=== PATIENT | female | born 1990 | race Caucasian/White ===

== ENCOUNTER 2017-12-31 10:00 | Inpatient (IN) ==
[2017-12-31] MEDS ORDERED: Famotidine 20 MG/2 ML VIAL IVP PRN (10:56)
[2017-12-31] MEDS ORDERED: Metoclopramide 10 MG/2 ML VIAL IVP PRN (10:56)
[2017-12-31] MEDS ORDERED: *HR* Nalbuphine 10 MG/ML AMPUL IVP PRN (10:56)
[2017-12-31] MEDS ORDERED: Ondansetron 4 MG/2 ML VIAL IVP PRN (10:56)
[2017-12-31] MEDS ORDERED: Naloxone 0.4 MG/ML INJ IVP PRN (10:56)
[2017-12-31] MEDS ORDERED: Penicillin G Potassium 5,000,000 UNIT in 0.9 % Sodium Chloride Mini Bag 100 ML IVPB ONE (10:59)
[2017-12-31] MEDS ORDERED: Ringers Solution, Lactated 1,000 ML IVC SCH (11:00)
[2017-12-31 11:18] LABS: Basophils % 0.3 %; Eosinophils # 0.2 K/mcL (0.0-0.6); Eosinophils % 1.8 %; Hematocrit 34.2 % (35.3-44.9); Immature Granulocytes % 0.6 % (0-4); Lymphocytes # 1.3 K/mcL (0.6-4.6); Lymphocytes % 14.6 %; Mean Corpuscular HGB Conc 32.2 g/dL (31.6-35.5); Mean Corpuscular Volume 83.8 fL (83.0-100.0); Mean Platelet Volume 10.7 fL (9.4-12.4); Monocytes # 0.6 K/mcL (0.0-1.3); Monocytes % 6.6 %; Neutrophils # 6.9 K/mcL (1.6-8.9); Platelet Count 272 K/mcL (140-400); Red Blood Count 4.08 M/mcL (3.82-4.97); Red Cell Distribution Width 15.4 % (11.5-14.5); Segmented Neutrophils % 76.1 %
[2017-12-31] MEDS ORDERED: miSOPROStol 25 MCG TABLET PO PRN (11:28)
[2017-12-31 11:29] LABS: Amphetamine Screen,Urine Negative ng/mL (Cutoff=1000); Barbiturate Screen,Urine Negative ng/mL (Cutoff=200); Benzodiazepines Screen,Urine Negative ng/mL (Cutoff=200); Cannabinoid Screen,Urine Negative ng/mL (Cutoff = 50); Cocaine Screen,Urine Negative ng/mL (Cutoff= 300); Opiate Screen,Urine Negative ng/mL (Cutoff=300); Phencyclidine Screen,Urine Negative ng/mL (Cutoff=25)
--- NOTE | 2017-12-31 12:52 | OB/GYN History & Physical ---
Date of Encounter: 12/31/17 Time of Encounter: 13:06 Assessment and Plan (1) 40 weeks gestation of Current visit: Yes Status: Acute Admit to labor and delivery labs Cytotec PO Q4HR Metoclopramide PRN Zofran every 6 hours PRN Nubain and epidural as desired Anticipate (2) Asthma Current visit: Yes Status: Acute Qualifiers: Asthma severity: mild Asthma persistence: intermittent Asthma complication type: unspecified Qualified Code(s): J45.20 - Mild intermittent asthma, uncomplicated (3) Anxiety and depression Current visit: Yes Status: Acute (4) Elective induction of labor planned Current visit: Yes Status: Acute Cytotec PO with EFM in anticipation of vaginal delivery History of Present Illness Chief complaint: Induction of labor HPI: Ms. Bowers is a 27 year old female 001 presenting for induction of labor at 40+1 weeks gestation. Patient has received care from Dr. Quinones. Patient reports no history of complications during this . Patient reports good movement, denies vaginal bleeding, discharge, or fluid leakage. -GBS positive, labs pending Past Med Surg Social Fam HX - Past Medical History Source: patient, nursing notes reviewed Medical history: asthma Psychiatric history: anxiety, depression - Past Surgical History Surgical History: other Additional surgical history: Dental Implants - Social History Smoking Status: Former smoker Smokeless Tobacco Status: No Alcohol use: none Drug use: none - Family History Mother Living Status: Still Living Hx Family Cardiac Disorders: No Hx Family Respiratory Disorders: No Hx Family Cancer: No Hx Family GI Disorders: No Hx Family Genitourinary Disorders: No Hx Family Endocrine Disorder: Yes (throid) Hx Family Musculoskeletal Disorders: No Hx Family Neuromuscular Disorders: No Hx Family Neurologic Disorders: No Hx Family HEENT Disorders: No Hx Family Autoimmune Disorders: No Hx Family Reproductive Disorders: No Hx Family Psychosocial Disorders: Yes (anxiety and depression) Hx Family Medical Disorders: No Obstetrical History - Pregnancies : 2 Para: 1 Term: 1 : 0 Ab's: 0 Livin Medications and Allergies Amoxicillin/Clavulanate [Augmentin] 875 mg PO BIDWM #14 tablet 10/01/17 [Rx] 3 Allergy/AdvReac Type Severity Reaction Status Date / Time No Known Allergies Allergy Verified 10/01/17 19:54 Review of System OB All systems PM: reviewed and no additional remarkable complaints except as stated - Constitutional Constitutional ROS IM: no chills, no fever(s), no headache(s) - Cardiovascular Cardiovascular: edema, leg edema, pedal edema, no chest pain - Respiratory Respiratory: no dyspnea - Gastrointestinal Gastrointestinal: no abdominal pain, no nausea, no vomiting - Genitourinary Genitourinary: no dysuria - Muscloskeletal Musculoskeletal: bilateral: ankle swelling, foot pain (Patient states pins and needles sensation in bilateral heels, worse with ambulation. ) - Neurological Nerological: no disequilibrium, no dizziness, no headache(s), no loss of vision Exam - Constitutional Constitutional: well developed, well nourished, no acute distress, average body habitus - HEENT HEENT: EOMI, PERRL, Normocephaly, Mucus Membranes Moist - Lungs Respiratory exam: CTAB - Cardiovascular Cardiovascular exam: RRR, +S1, +S2 - Abdomen Abdomen: Present: bowel sounds normal, gravid, non tender - Extremities Extremities exam: pedal edema (1+ pitting edema noted in bilateral lower extremities), warm - Cervix Dilation: 4 Effacement: 50 Results Result Diagrams: 12/31/17 10:50 Abnormal lab results Hgb 11.0 g/dL (11.5-15.4) L 12/31/17 10:50 Hct 34.2 % (35.3-44.9) L 12/31/17 10:50 MCH 27.0 pg (28.0-33.3) L 12/31/17 10:50 RDW 15.4 % (11.5-14.5) H 12/31/17 10:50 All other labs normal. - VTE Reasons for not Prescribing Prophylaxis: Treatment not Indicated - Low risk for VTE - Attending Attestation I examined this patient and my medical decision-making was reviewed with the Resident Physician. I agree with the documented findings, disposition and treatment plan as described. Eliana Quinones DO
[2017-12-31 14:16] LABS: HIV-1&2 Antibody & p24 Ag Nonreactive (Nonreactive); Hepatitis B Surface Antigen Nonreactive (Nonreactive)
--- NOTE | 2017-12-31 14:56 | Anesthesia Evaluation PreOp ---
Date of Encounter: 12/31/17 Time of Encounter: 14:54 - Past History Planned Operation: joe Cardiac History: Denies any Significant Hx Pulmonary History: Former smoker (6 months ago), Asthma PEDIATRIC ONCOLOGY NURSE History: Denies Any Significant HX Other Medical History: Denies Any Significant HX Anesthesia History: No Prior Anesthetic Complications, Past Anesthesia : Yes (40 ) Alcohol Use: none Drug use: none Medications and Allergies Amoxicillin/Clavulanate [Augmentin] 875 mg PO BIDWM #14 tablet 10/01/17 [Rx] 3 Allergy/AdvReac Type Severity Reaction Status Date / Time No Known Allergies Allergy Verified 10/01/17 19:54 - Meds/Allergy Pre-op Review Medications Reviewed: Yes Allergies Reviewed: Yes Beta Blockers on Current Med List: No Anesthesia Results - Labs 12/31/17 10:50 Anesthesia Exam O2 Sat Height 1.75 m Height 1.75 m Weight 95.617 kg Weight 95.617 kg bp129/69 Height: 69 Weight: 95 - HEENT Pupil (Motor): Pupils equal Mallampati: II Teeth: Normal Oral Opening: Greater than 3 - PEDIATRIC ONCOLOGY NURSE LOC: Oriented PEDIATRIC ONCOLOGY NURSE Motor: Normal RUE, Normal LUE, Normal RLE, Normal LLE, Normal Face PEDIATRIC ONCOLOGY NURSE Sensory: Normal: RUE, LUE, RLE, LLE, Face - Cardiac Rhythm: Regular Murmur: None JVD: No Carotid Bruit: No - Pulmonary Breath Sounds: bilateral Clear Respiratory Effort: Symmetrical Anesthesia Assess/Plan ASA Score: 2 Modified [place] Scale for Level of Consciousness: Cooperative, oriented, and tranquil Anesthetic Plan: Regional Monitoring Plan: Standard Monitors
[2017-12-31] MEDS: Penicillin G Potassium 2,500,000 UNIT in 0.9 % Sodium Chloride 100 ML IVPB SCH ×2 (15:15→19:17)
[2017-12-31] MEDS ORDERED: Oxytocin 20 units/ LR 1000 mL 20 UNIT/1,000 ML BAG IVC SCH (16:15)
[2017-12-31] MEDS ORDERED: Mag Hydrox/Al Hydrox/Simeth 30 ML UDC PO PRN (16:15)
[2017-12-31] MEDS ORDERED: Epidural Premix (fent/bupiv) 110 ML EP SCH (16:30)
[2017-12-31] MEDS ORDERED: *HR* Ropivacaine/PF 0.2% 20 ML VIAL EP ONE (16:30)
[2017-12-31] MEDS ORDERED: *HR* FentaNYL (PF) 100 MCG/2 ML VIAL EP ONE (16:30)
[2017-12-31] MEDS ORDERED: EPHEDrine 50 MG/ML VIAL IVP PRN (16:30)
--- NOTE | 2017-12-31 16:33 | Anesthesia Procedures ---
Date of Encounter: 12/31/17 Time of Encounter: 16:31 Procedures: Anesthesia - Epidural/Spinal Patient ID/Chart reviewed: Yes Patient examined: Yes OB Eval: Contractions: Non-stressed pattern Consent Obtained: Yes Supplemental Oxygen: None/Room Air Site Prep: Aseptic Technique Patient position: upright Local Anesthetic: Lidocaine 1% Amount of Local Anesthetic used: 3 Touhy Needle Gauge: 18 Touhy Needle Depth (cm): 4 Catheter Depth at Skin (cm): 11 Test Dose (1.5% Lido + Epi): Volume given (mls): 3 Test Dose Result: Negative Loading Dose: Fentanyl (mcg): 100 Loading Dose: Other: 6ml 0.2% ropi Loading Dose Administered: Thru Touhy Needle Infusion Med: 0.125% Bupivacaine w/ 2 mcg/ml Fentanyl Infusion Rate (mls/hr): [address]: Tegaderm Interspace Used: L3-L4 Loss of Resistance (REBECCA): Yes Blood: No CSF: No Paresthesia: No
--- NOTE | 2017-12-31 17:52 | OB Labor Progress Note ---
Date of Encounter: 12/31/17 Time of Encounter: 17:50 Labor Progress Note - Subjective Subjective: Patient is getting more uncomfortable with the pitocin. She still does not desire an epidural. - Cervix Cervix: 5/75/-2 vertex - Heart Tones Heart Tones: category 1, baseline 110's - [place]: q 2-3 minutes, pitocin at 2 mUnits/min - Interventions Interventions: AROM with moderate amount of clear fluid. - Plan Plan: Continue pitocin and increase PRN
[2018-01-01] MEDS ORDERED: Penicillin G Potassium 2,500,000 UNIT in 0.9 % Sodium Chloride 100 ML IVPB SCH
--- NOTE | 2018-01-01 00:37 | OB Labor Progress Note ---
Date of Encounter: 01/01/18 Time of Encounter: 00:35 Labor Progress Note - Subjective Subjective: Patient is very uncomfortable and has strong urge to push - Cervix Cervix: 9/90/-1 vertex - Heart Tones Heart Tones: 120 baseline, category 1 - [place]: q 2 minutes - Plan Plan: Continue pitocin induction. Offer pain control.
[2018-01-01] MEDS ORDERED: *HR* FentaNYL (PF) 100 MCG/2 ML VIAL ONE (02:01)
[2018-01-01] MEDS ORDERED: Lidocaine -MPF 1% 5 ML AMPUL ONE (02:02)
[2018-01-01] MEDS ORDERED: Water for inj. (sterile) 10 ML IV ONE (02:03)
[2018-01-01] MEDS ORDERED: Bupivacaine-MPF 0.25% 10 ML VIAL ONE (02:03)
--- NOTE | 2018-01-01 02:35 | Anesthesia Procedures ---
Date of Encounter: 01/01/18 Time of Encounter: 02:31 Procedures: Anesthesia - Epidural/Spinal Patient ID/Chart reviewed: Yes Patient examined: Yes OB Eval: Contractions: Non-stressed pattern Consent Obtained: Yes Supplemental Oxygen: None/Room Air Site Prep: Aseptic Technique Patient position: upright Local Anesthetic: Lidocaine 1% Amount of Local Anesthetic used: 3 Touhy Needle Gauge: 18 Touhy Needle Depth (cm): 5 Catheter Depth at Skin (cm): 12 Test Dose (1.5% Lido + Epi): Volume given (mls): 3 Test Dose Result: Negative Infusion Med: 0.125% Bupivacaine w/ 2 mcg/ml Fentanyl Infusion Rate (mls/hr): [address]: Tegaderm Interspace Used: L2-L3 Loss of Resistance (REBECCA): Yes Blood: No CSF: No Paresthesia: No Procedure: CSEA at L2-3 x 1 attempt. Good REBECCA, 27g thru epidural needle, clear CSF, 15mcg fentanyl and 0.75cc 0.25% bupivicaine thru spinal needle. Catheter then threaded thru epidural needle and gtt began at 14ml/hr after negative test dose of 3cc 1.5%l lido with epi 1:200,000. Tolerated without complaint.
--- NOTE | 2018-01-01 09:05 | OB/GYN Procedure Note ---
Delivery - Delivery Date: 01/01/18 Provider: Humberto Mercado Intrapartum events: none Delivery induction: misoprostol Delivery augmentation: rupture of membranes, pitocin Delivery monitor: external FHT, external uterine Anesthesia: epidural Quantitated Blood Loss: 200 - (s) Infant A Infant Delivery Date: 01/01/18 Delivery Time: 08:42 Presentation: vertex Position: SHAHEEN Route of delivery: vacuum extraction Gender: Female Viability: Viable Pounds: 9 Ounces: 12 Weight Gram: 4.415 kg at 1 minute: 8 at 5 mins: 9 Shoulder Dystocia: encountered Shoulder Dystocia Maneuvers: Rich maneuver, suprapubic pressure, Brito Screw maneuver Specimens collected: cord blood Placenta: spontaneous Cord: 3 umbilical vessels - Repair Episiotomy: none Laceration Description: Perineal - 2nd Degree - Complications Delivery complications: none Delivery comments: Patient is a 27-year-old 2 para 1 at 40-1/7 weeks is brought in for induction of labor secondary to term with favorable cervix. Patient received Cytotec on admission followed by artificial rupture membranes and Pitocin patient progressed very slowly but appropriately patient became complete but could not feel anything to allow her to push we allowed the patient to labor down patient started feeling some pressure we had to stop pushing. Patient's baby started having some deep decelerations down to the 70s with slow return into the low 100s 's head was however when she stopped pushing it would retract suggestive there was going to be a dystocia. Patient tones remained down into the 80s so at this time a vacuum assisted delivery would be required. A Kiwi vacuum was applied and then the patient's next contraction the pressure was increased to 500 mmHg and with 1 pull we delivered a 's head in left occiput anterior presentation at 0 842. Shoulder dystocia was encountered Rich maneuver, suprapubic pressure, and Brito corkscrew was used to deliver the posterior shoulder followed by the anterior shoulder. We had approximately 18 seconds dystocia before the was delivered. The cord was clamped and cut infant was handed off to waiting pediatric team. Cord blood was collected, placenta was sent to spontaneously with a three-vessel cord. Residential [employer] Auditor was Dr. Mercado, anesthesia epidural, ethmoid blood loss 200 mL. Patient had a second-degree perineal laceration repaired with 3-0 Monocryl in usual fashion. Cervix and vagina was visualized intact. All needles lap sponge counts were correct 3 patient will be observed 2 hours before being taken floor. - Disposition Mom disposition: stable in LDR [place] disposition: stable in LDR
[2018-01-01] MEDS ORDERED: Prenatal Vit/FA 1 EACH TABLET PO SCH (11:37)
[2018-01-01] MEDS ORDERED: Acetaminophen 325 MG TABLET PO PRN (11:37)
[2018-01-01] MEDS ORDERED: Measles/Mumps/Rubella Vacc 0.5 ML VIAL SQ PRN (11:37)
[2018-01-01] MEDS ORDERED: Lanolin 7 G OINT...G. TP PRN (11:37)
[2018-01-01] MEDS ORDERED: Benzocaine/Menthol 56 GM AEROSOL SPRAY TP PRN (11:37)
[2018-01-01] MEDS ORDERED: Oxytocin 20 units/ LR 1000 mL 20 UNIT/1,000 ML BAG IVC SCH (11:37)
[2018-01-01] MEDS: Ibuprofen 600 MG TABLET PO PRN ×2 (12:41→20:26)
[2018-01-02] MEDS: Ibuprofen 600 MG TABLET PO PRN (04:49)
[2018-01-02 07:12] LABS: Basophils % 0.2 %; Eosinophils # 0.1 K/mcL (0.0-0.6); Eosinophils % 1.1 %; Hematocrit 32.3 % (35.3-44.9); Hemoglobin 10.1 g/dL (11.5-15.4); Immature Granulocytes % 0.6 % (0-4); Lymphocytes # 1.8 K/mcL (0.6-4.6); Lymphocytes % 14.7 %; Mean Corpuscular HGB Conc 31.3 g/dL (31.6-35.5); Mean Corpuscular Hemoglobin 26.8 pg (28.0-33.3); Mean Corpuscular Volume 85.7 fL (83.0-100.0); Mean Platelet Volume 10.6 fL (9.4-12.4); Monocytes # 0.7 K/mcL (0.0-1.3); Neutrophils # 9.6 K/mcL (1.6-8.9); Platelet Count 235 K/mcL (140-400); Red Blood Count 3.77 M/mcL (3.82-4.97); Red Cell Distribution Width 15.8 % (11.5-14.5); Segmented Neutrophils % 77.4 %
--- NOTE | 2018-01-02 08:56 | Discharge Summary ---
Date of Encounter: 01/02/18 Time of Encounter: 08:55 - Discharge Diagnosis (1) Vaginal delivery Priority: Primary Status: Acute Comments: S/P Vaginal delivery Day 1 Pain is well controlled. Lochia is moderate and without clots Tolerating regular diet; passing flatus and voiding without difficulty VSS well Discharge home today - Discharge Medications Prescriptions: Ibuprofen [Motrin] 600 mg PO Q6HR PRN #30 tablet PRN Reason: Cramping Docusate [Colace] 100 mg PO BID PRN #30 capsule PRN Reason: Constipation Ferrous Sulfate 325 mg PO DAILY #90 tablet Home Medications: Acetaminophen [Tylenol] 650 mg PO Q6HR PRN tablet 01/02/18 [Rx] Benzocaine/Menthol [place] [Dermoplast [place]] 1 appl TP QID PRN aerosol 01/02/18 [Rx] Breast Pump [BREAST PUMP] 1 each .ROUTE AD #1 each 01/02/18 [Rx] Docusate [Colace] 100 mg PO BID PRN #30 capsule 01/02/18 [Rx] Ferrous Sulfate 325 mg PO DAILY #90 tablet 01/02/18 [Rx] Ibuprofen [Motrin] 600 mg PO Q6HR PRN #30 tablet 01/02/18 [Rx] Lanolin [Lansinoh] 1 appl TP QID PRN oint...g. 01/02/18 [Rx] Measles/Mumps/Rubella Vacc [MMR II Vaccine with Diluent] 0.5 ml SQ AD PRN vial 01/02/18 [Rx] Vit/FA 1 each PO DAILY tablet 01/02/18 [Rx] Allergies/Adverse Reactions: 3 Allergy/AdvReac Type Severity Reaction Status Date / Time No Known Allergies Allergy Verified 10/01/17 19:54 Data Procedures and tests throughout hospitalization: Laboratory Tests 12/31/17 12/31/17 12/31/17 10:50 10:50 10:50 WBC 9.0 RBC 4.08 Hgb 11.0 L Hct 34.2 L MCV 83.8 MCH 27.0 L MCHC 32.2 RDW 15.4 H Plt Count 272 MPV 10.7 Immature Gran % 0.6 Seg Neutrophils % 76.1 Lymphocytes % 14.6 Monocytes % 6.6 Eosinophils % 1.8 Basophils % 0.3 Neutrophils # 6.9 Lymphocytes # 1.3 Monocytes # 0.6 Eosinophils # 0.2 Basophils # 0.0 Urine Opiates Screen Negative Ur Barbiturates Screen Negative Ur Phencyclidine Scrn Negative Ur Amphetamines Screen Negative U Benzodiazepines Scrn Negative Urine Cocaine Screen Negative U Marijuana (THC) Screen Negative Ur Drug Screen Interp See Below Hep Bs Antigen HIV Ag/Ab Combo Qual Blood Type A POSITIVE 12/31/17 01/02/18 12:38 06:51 WBC 12.4 H RBC 3.77 L Hgb 10.1 L Hct 32.3 L MCV 85.7 MCH 26.8 L MCHC 31.3 L RDW 15.8 H Plt Count 235 MPV 10.6 Immature Gran % 0.6 Seg Neutrophils % 77.4 Lymphocytes % 14.7 Monocytes % 6.0 Eosinophils % 1.1 Basophils % 0.2 Neutrophils # 9.6 H Lymphocytes # 1.8 Monocytes # 0.7 Eosinophils # 0.1 Basophils # 0.0 Urine Opiates Screen Ur Barbiturates Screen Ur Phencyclidine Scrn Ur Amphetamines Screen U Benzodiazepines Scrn Urine Cocaine Screen U Marijuana (THC) Screen Ur Drug Screen Interp Hep Bs Antigen Nonreactive HIV Ag/Ab Combo Qual Nonreactive Blood Type Labs on day of discharge: Labs from last 24 hours 01/02/18 06:51 WBC 12.4 H RBC 3.77 L Hgb 10.1 L Hct 32.3 L MCV 85.7 MCH 26.8 L MCHC 31.3 L RDW 15.8 H Plt Count 235 MPV 10.6 Immature Gran % 0.6 Seg Neutrophils % 77.4 Lymphocytes % 14.7 Monocytes % 6.0 Eosinophils % 1.1 Basophils % 0.2 Neutrophils # 9.6 H Lymphocytes # 1.8 Monocytes # 0.7 Eosinophils # 0.1 Basophils # 0.0 Date of admission: 12/31/17 10:24 Primary care physician: PCP NONE Consults: 01/01/18 11:37 Consult to [employer]pper [CONS] Routine Comment: Vaginal delivery, consult needed Discharging clinician: Roopa Almanzar Anticipated date of discharge: 01/02/18 - Patient Status Disposition: Home, Self-Care Condition: Good Functional capacity at discharge: independent ambulation Overall status at discharge: patient is progressing back to baseline - Discharge Instructions Follow Up With: NONE,PCP [Primary Care Provider] - Eliana Quinones DO [Partnered Physician] - - Diet and Activity Activity: increase activity as tolerated Diet: regular diet Hospital Course Reason for admission: induction of labor, IUP at term Delivery: Episiotomy: none Laceration: 2nd degree Other procedures: none complications: none Discharge diagnosis: IUP at term delivered baby: male Time Attestation: Total time spent providing and/or coordinating discharge services: Time Spent: Less than 30 minutes Exam - Constitutional Vitals: Temp Pulse Resp BP Pulse Ox 97.4 F L 74 16 112/74 97 01/02/18 04:48 01/02/18 04:48 01/02/18 04:48 01/02/18 04:48 01/02/18 04:48 General appearance IM: cooperative, A&O X 3, pleasant - Respiratory Respiratory exam: Present: CTAB - Cardiovascular Cardiovascular exam IM: Present: RRR, +S1, +S2 - GI/Abdominal GI/Abdominal exam IM: normal bowel sounds, soft - Rectal Rectal exam: deferred - Uterine Tone: Firm Uterus Position: At Umbilicus, Midline - Extremities Exam Extremities exam IM: Present: normal capillary refill, normal inspection, radial pulses palpable and symmetrical - Neurological Exam Neurological exam: alert, oriented X3
[2018-01-02 10:15] LABS: Rubella IgG Antibody POSITIVE (POSITIVE); Varicella Zoster IgG Antibody Positive
[2018-01-02 10:36] VITALS: BP 121/73
== END 2018-01-02 13:30 | disposition home or self-care (01) | DRG 560 ==
LOC: 1NENULAB 10:24 → 1NENUOBS 15:50 → 1NENULAB 15:58 → 1NENUOBS 01-01 11:30
PROVIDERS: ADMIT Obstetrics & Gynecology; ATTEND Obstetrics & Gynecology

== ENCOUNTER 2018-01-05 19:38 | Inpatient (IN) ==
[2018-01-05] MEDS ORDERED: *HR* FentaNYL (PF) 100 MCG/2 ML VIAL IVP ONE (20:23)
[2018-01-05] MEDS ORDERED: Ondansetron 4 MG/2 ML VIAL IVP ONE (20:23)
[2018-01-05 20:57] LABS: Bilirubin,Urine Negative (Negative); Blood,Urine Large (Negative); Clarity,Urine Cloudy (Clear); Color,Urine Yellow (Yellow); Glucose,Urine (UA) Normal (Normal); Ketones,Urine Negative (Negative); Leukocyte Esterase,Urine Large (Negative); Nitrite,Urine Negative (Negative); PH,Urine 6.5 pH Units (5.0-8.0); Protein,Urine Trace mg/dL (Neg-Trace); Specific Gravity,Urine 1.016 (1.010-1.025); Urobilinogen,Urine Normal (Normal)
[2018-01-05 20:59] LABS: Bacteria,Urine None Seen per hpf (None-Few); Hyaline Casts,Urine Moderate per lpf (None-Few); RBC,Urine 50-100 per hpf (0-3); Squamous Epithelial Cell,Urine Few per lpf (None-Few); WBC,Urine TNTC per hpf (0-3)
--- NOTE | 2018-01-05 21:02 | Emergency Department Note ---
Disposition Clinical Impression: Endometritis Disposition: Admitted As Inpatient Condition: Good Referrals: NONE,PCP [Primary Care Provider] - Forms: ED Satisfaction Letter Time of Disposition: 23:40 General Adult HPI - General Chief complaint: ED General Medical Stated complaint: chills vag delivery tuesday Time Seen by Provider: 01/05/18 20:03 Source: patient Mode of arrival: ambulatory Limitations: no limitations Nursing Notes Reviewed: Yes Vital Signs Reviewed: Yes - History of Present Illness HPI Narrative: 27-year-old female with significant past medical history of asthma presenting to the emergency department chief complaint of lower abdominal Cramps and chills. Patient gave vaginally 6 days ago. Patient's vaginal delivery was complicated by use of vacuum but otherwise progressed without difficulty. Patient states when she was discharged from labor and delivery she was feeling well. At home she has been taking iron pills and stool softeners. Patient has been alternating Tylenol and Motrin every 3 hours at home to help with pain. Patient also describes some chills at home. She took her temperature at home and it was not elevated. She states she has been doing well until today. She noticed some right lower quadrant cramping and pain. Got significantly worse when she got to the emergency department. Denies nausea, vomiting or diarrhea. Denies any sick contacts. Denies any previous abdominal surgeries. Pain Scale: 2 - Related Data Previous Rx's Medication Instructions Recorded Acetaminophen [Tylenol] 650 mg PO Q6HR PRN tablet 01/02/18 Benzocaine/Menthol [place] 1 appl TP QID PRN aerosol 01/02/18 [Dermoplast [place]] Breast Pump [BREAST PUMP] 1 each .ROUTE AD #1 each 01/02/18 Docusate [Colace] 100 mg PO BID PRN #30 capsule 01/02/18 Ferrous Sulfate 325 mg PO DAILY #90 tablet 01/02/18 Ibuprofen [Motrin] 600 mg PO Q6HR PRN #30 tablet 01/02/18 Lanolin [Lansinoh] 1 appl TP QID PRN oint...g. 01/02/18 Measles/Mumps/Rubella Vacc [MMR II 0.5 ml SQ AD PRN vial 01/02/18 Vaccine with Diluent] Vit/FA 1 each PO DAILY tablet 01/02/18 Breast Pump [BREAST PUMP] 1 each .ROUTE AD #1 each 01/03/18 Allergies Allergy/AdvReac Type Severity Reaction Status Date / Time No Known Allergies Allergy Verified 10/01/17 19:54 All systems ED: reviewed and negative except as stated. Constitutional: Reports: chills Eyes: Reports: as per HPI ENT ED: Reports: as per HPI Cardiovascular: Denies: chest pain, palpitations, dyspnea on exertion Respiratory: Denies: cough, dyspnea, wheezes Gastrointestinal: Reports: abdominal pain. Denies: nausea, vomiting, diarrhea Genitourinary: Reports: as per HPI Musculoskeletal: Reports: as per HPI Integumentary: Reports: as per HPI Neurological: Denies: weakness, numbness, paresthesias Psychiatric: Reports: as per HPI Endocrine: Reports: as per HPI Hematological/Lymphatic: Reports: as per HPI Allergic/Immunologic: Reports: as per HPI Past Medical History - Past Medical History Attestation: Yes The following information was validated with the patient. Medical history: Reports: asthma Surgical history: Reports: other Psychiatric history: Reports: anxiety, depression - Social History Smoking Status: Never smoker Smokeless Tobacco Status: No Alcohol use: Reports: none Drug use: Reports: none Physical Exam - General Limitations: no limitations General appearance: alert, in no apparent distress - Head Head exam: atraumatic, normocephalic, normal inspection - Eye Eye exam: Present: normal appearance. Absent: scleral icterus, conjunctival injection - ENT ENT exam: normal exam, mucous membranes moist - Neck Neck exam: Present: normal inspection, full ROM. Absent: tenderness, meningismus - Chest Chest inspection: Present: normal inspection, symmetric chest wall rise. Absent : tenderness, rash - Respiratory Respiratory exam: Present: normal lung sounds bilaterally. Absent: respiratory distress, wheezes - Cardiovascular Cardiovascular exam: Present: normal rhythm, tachycardia, normal heart sounds - Abdominal Exam Abdominal exam: Present: other (Tenderness to superficial palpation diffusely, most of the pain is located in the right lower quadrant. Patient's abdomen is not rigid or concern for surgical abdomen at this time. Patient fundus can be palpated 3 fingerbreadths below the umbilicus.) - Extremities Exam Extremities exam: Present: normal inspection, full ROM. Absent: pedal edema - Neurological Exam Neurological exam: Present: alert, oriented X3 - Psychiatric Psychiatric exam: Present: anxious - Skin Skin exam: Present: warm, intact Course Course Narrative: 27-year-old patient presenting for multiple complaints including chills and right lower quadrant pain. In the room the patient is anxious and is having difficulty getting comfortable. Her vital signs show hypertension with systolic elevated in the 150s and tachycardia in the 120s. Patient's blood pressure stable. Patient is alert and oriented 3. Due to patient's complex symptoms we will obtain a CBC, CMP, lipase, straight catheter urine analysis, CT of abdomen and pelvis and transabdominal ultrasound. We will provide the patient with fentanyl and Zofran for pain control. Disposition pending results. Patient agrees with this plan. - Reevaluation(s) Reevaluation #1: Patient's laboratory analysis shows mild leukocytosis. Otherwise within normal limits. Urinalysis shows white cells and leukocyte esterase. CT of the abdomen and pelvis shows uterus but otherwise benign. Pelvic ultrasound concerning for endometritis versus retained products of conception. At this time patient is alert and oriented 3 in the room. Remains mildly tachycardic but otherwise vital signs stable. Patient pain control at this time. We will consult [facility] to determine further disposition. Patient agrees with this plan. Reevaluation #2: I spoke with [facility] [facility] on-call Dr. Bunn who feels that patient has endometritis. We will provide the patient with Zosyn per recommendation and admit her to labor and delivery. Patient is alert and oriented 3 in the room stable vital signs. Patient agrees with this plan. Vital Signs Temperature 98.4 F 01/05/18 19:48 Pulse Rate 128 01/05/18 19:48 Respiratory Rate 20 01/05/18 19:48 Blood Pressure 132/84 01/05/18 19:48 O2 Sat by Pulse Oximetry 97 01/05/18 19:48 Temperature 99.9 F H 01/05/18 21:37 Pulse Rate 100 01/05/18 21:37 Respiratory Rate 16 01/05/18 21:37 Blood Pressure 139/75 01/05/18 21:37 O2 Sat by Pulse Oximetry 96 01/05/18 21:37 Oxygen Delivery Oxygen Delivery Room Air Medical Decision Making - Lab Data Result diagrams: 01/05/18 21:03 01/05/18 21:03 Lab Results 01/05/18 01/05/18 01/05/18 Range/Units 20:47 21:03 21:03 WBC 13.8 H (4.3-11.1) K/mcL RBC 4.42 (3.82-4.97) M/mcL Hgb 11.8 D (11.5-15.4) g/dL Hct 37.0 (35.3-44.9) % MCV 83.7 (83.0-100.0) fL MCH 26.7 L (28.0-33.3) pg MCHC 31.9 (31.6-35.5) g/dL RDW 16.2 H (11.5-14.5) % Plt Count 329 (140-400) K/mcL MPV 9.6 (9.4-12.4) fL Immature Gran % 0.4 (0-4) % Seg Neutrophils % 79.2 % Lymphocytes % 11.8 % Monocytes % 6.0 % Eosinophils % 2.4 % Basophils % 0.2 % Neutrophils # 10.9 H (1.6-8.9) K/mcL Lymphocytes # 1.6 (0.6-4.6) K/mcL Monocytes # 0.8 (0.0-1.3) K/mcL Eosinophils # 0.3 (0.0-0.6) K/mcL Basophils # 0.0 (0.0-0.2) K/mcL Sodium 137 (136-145) mEq/L Potassium 3.8 (3.5-5.1) mEq/L Chloride 105 (98-107) mEq/L Carbon Dioxide 23 (23-29) mEq/L BUN 15 (6-20) mg/dL Creatinine 0.72 (0.60-1.20) mg/dL Est GFR ( Amer) > 60 (> 60) Est GFR (Non-Af Amer) > 60 (> 60) BUN/Creatinine Ratio 21 (6-26) Glucose 87 (70-105) mg/dL Calculated Osmolality 284 (280-300) Uric Acid 6.0 (2.3-7.6) mg/dL Calcium 8.9 (8.6-10.3) mg/dL Total Bilirubin 0.2 L (0.3-1.0) mg/dL AST 28 (13-39) Units/L ALT 33 (7-52) Units/L Alkaline Phosphatase 112 H (34-104) Units/L Lactate Dehydrogenase 260 (140-271) Units/L Serum Total Protein 6.8 (6.4-8.9) g/dL Albumin 3.6 (3.5-5.7) g/dL Globulin 3.2 (2.4-3.5) g/dL Albumin/Globulin Ratio 1.1 (1.1-2.2) Lipase 55 (11-82) Units/L Urine Color Yellow (Yellow) Urine Clarity Cloudy A (Clear) Urine pH 6.5 (5.0-8.0) pH Units Ur Specific [place] 1.016 (1.010-1.025) Urine Protein Trace (Neg-Trace) mg/dL Urine Glucose (UA) Normal (Normal) mg/dL Urine Ketones Negative (Negative) mg/dL Urine Blood Large H (Negative) Urine Nitrite Negative (Negative) Urine Bilirubin Negative (Negative) Urine Urobilinogen Normal (Normal) mg/dL Ur Leukocyte Esterase Large H (Negative) Urine Microscopic RBC 50-100 H (0-3) per hpf Urine Microscopic WBC TNTC H (0-3) per hpf Ur Squamous Epith Cells Few (None-Few) per lpf Urine Bacteria None Seen (None-Few) per hpf Hyaline Casts Moderate H (None-Few) per lpf Ur Culture Indicated? YES A (NO)
[2018-01-05 21:20] LABS: Basophils % 0.2 %; Eosinophils # 0.3 K/mcL (0.0-0.6); Eosinophils % 2.4 %; Hemoglobin 11.8 g/dL (11.5-15.4); Immature Granulocytes % 0.4 % (0-4); Lymphocytes # 1.6 K/mcL (0.6-4.6); Lymphocytes % 11.8 %; Mean Corpuscular HGB Conc 31.9 g/dL (31.6-35.5); Mean Corpuscular Hemoglobin 26.7 pg (28.0-33.3); Mean Corpuscular Volume 83.7 fL (83.0-100.0); Mean Platelet Volume 9.6 fL (9.4-12.4); Monocytes # 0.8 K/mcL (0.0-1.3); Neutrophils # 10.9 K/mcL (1.6-8.9); Platelet Count 329 K/mcL (140-400); Red Blood Count 4.42 M/mcL (3.82-4.97); Red Cell Distribution Width 16.2 % (11.5-14.5); Segmented Neutrophils % 79.2 %
[2018-01-05 21:38] LABS: Alanine Aminotransferase 33 Units/L (7-52); Albumin 3.6 g/dL (3.5-5.7); Albumin/Globulin Ratio 1.1 (1.1-2.2); Alkaline Phosphatase 112 Units/L (34-104); Aspartate Amino Transferase 28 Units/L (13-39); BUN/Creatinine Ratio 21 (6-26); Bilirubin,Total 0.2 mg/dL (0.3-1.0); Blood Urea Nitrogen 15 mg/dL (6-20); Calcium 8.9 mg/dL (8.6-10.3); Carbon Dioxide 23 mEq/L (23-29); Chloride 105 mEq/L (98-107); Globulin 3.2 g/dL (2.4-3.5); Glucose 87 mg/dL (70-105); Lactate Dehydrogenase 260 Units/L (140-271); Lipase 55 Units/L (11-82); Osmolality,Calculated 284 (280-300); Potassium 3.8 mEq/L (3.5-5.1); Sodium 137 mEq/L (136-145); Total Protein 6.8 g/dL (6.4-8.9); eGFR For Non-African Americans > 60 (> 60)
[2018-01-05] MEDS ORDERED: Piperacillin/Tazobactam 3.375 GM in 0.9 % Sodium Chloride Mini Bag 100 ML IVPB ONE (23:37)
--- NOTE | 2018-01-05 23:39 | Emergency Department Note ---
Disposition Clinical Impression: Endometritis Disposition: Admitted As Inpatient Condition: Good Referrals: NONE,PCP [Primary Care Provider] - Forms: ED Satisfaction Letter Time of Disposition: 23:40 General Adult HPI - General Chief complaint: ED General Medical Stated complaint: chills vag delivery tuesday Time Seen by Provider: 01/05/18 20:03 Source: patient Mode of arrival: ambulatory Limitations: no limitations Nursing Notes Reviewed: Yes Vital Signs Reviewed: Yes - History of Present Illness Pain Scale: 2 - Related Data Previous Rx's Medication Instructions Recorded Acetaminophen [Tylenol] 650 mg PO Q6HR PRN tablet 01/02/18 Benzocaine/Menthol [place] 1 appl TP QID PRN aerosol 01/02/18 [Dermoplast [place]] Breast Pump [BREAST PUMP] 1 each .ROUTE AD #1 each 01/02/18 Docusate [Colace] 100 mg PO BID PRN #30 capsule 01/02/18 Ferrous Sulfate 325 mg PO DAILY #90 tablet 01/02/18 Ibuprofen [Motrin] 600 mg PO Q6HR PRN #30 tablet 01/02/18 Lanolin [Lansinoh] 1 appl TP QID PRN oint...g. 01/02/18 Measles/Mumps/Rubella Vacc [MMR II 0.5 ml SQ AD PRN vial 01/02/18 Vaccine with Diluent] Vit/FA 1 each PO DAILY tablet 01/02/18 Breast Pump [BREAST PUMP] 1 each .ROUTE AD #1 each 01/03/18 Allergies Allergy/AdvReac Type Severity Reaction Status Date / Time No Known Allergies Allergy Verified 10/01/17 19:54 Constitutional: Reports: chills Eyes: Reports: as per HPI ENT ED: Reports: as per HPI Cardiovascular: Denies: chest pain, palpitations, dyspnea on exertion Respiratory: Denies: cough, dyspnea, wheezes Gastrointestinal: Reports: abdominal pain. Denies: nausea, vomiting, diarrhea Genitourinary: Reports: as per HPI Musculoskeletal: Reports: as per HPI Integumentary: Reports: as per HPI Neurological: Denies: weakness, numbness, paresthesias Psychiatric: Reports: as per HPI Endocrine: Reports: as per HPI Hematological/Lymphatic: Reports: as per HPI Allergic/Immunologic: Reports: as per HPI Past Medical History - Past Medical History Medical history: Reports: asthma Surgical history: Reports: other Psychiatric history: Reports: anxiety, depression - Social History Smoking Status: Never smoker Smokeless Tobacco Status: No Alcohol use: Reports: none Drug use: Reports: none Physical Exam - General Limitations: no limitations General appearance: alert, in no apparent distress Course Vital Signs Temperature 98.4 F 01/05/18 19:48 Pulse Rate 128 01/05/18 19:48 Respiratory Rate 20 01/05/18 19:48 Blood Pressure 132/84 01/05/18 19:48 O2 Sat by Pulse Oximetry 97 01/05/18 19:48 Temperature 99.9 F H 01/05/18 21:37 Pulse Rate 100 01/05/18 21:37 Respiratory Rate 16 01/05/18 21:37 Blood Pressure 139/75 01/05/18 21:37 O2 Sat by Pulse Oximetry 96 01/05/18 21:37 Oxygen Delivery Oxygen Delivery Room Air Medical Decision Making - Lab Data Lab results reviewed: Yes I reviewed the patient's lab results. Result diagrams: 01/05/18 21:03 01/05/18 21:03 Lab Results 01/05/18 01/05/18 01/05/18 Range/Units 20:47 21:03 21:03 WBC 13.8 H (4.3-11.1) K/mcL RBC 4.42 (3.82-4.97) M/mcL Hgb 11.8 D (11.5-15.4) g/dL Hct 37.0 (35.3-44.9) % MCV 83.7 (83.0-100.0) fL MCH 26.7 L (28.0-33.3) pg MCHC 31.9 (31.6-35.5) g/dL RDW 16.2 H (11.5-14.5) % Plt Count 329 (140-400) K/mcL MPV 9.6 (9.4-12.4) fL Immature Gran % 0.4 (0-4) % Seg Neutrophils % 79.2 % Lymphocytes % 11.8 % Monocytes % 6.0 % Eosinophils % 2.4 % Basophils % 0.2 % Neutrophils # 10.9 H (1.6-8.9) K/mcL Lymphocytes # 1.6 (0.6-4.6) K/mcL Monocytes # 0.8 (0.0-1.3) K/mcL Eosinophils # 0.3 (0.0-0.6) K/mcL Basophils # 0.0 (0.0-0.2) K/mcL Sodium 137 (136-145) mEq/L Potassium 3.8 (3.5-5.1) mEq/L Chloride 105 (98-107) mEq/L Carbon Dioxide 23 (23-29) mEq/L BUN 15 (6-20) mg/dL Creatinine 0.72 (0.60-1.20) mg/dL Est GFR ( Amer) > 60 (> 60) Est GFR (Non-Af Amer) > 60 (> 60) BUN/Creatinine Ratio 21 (6-26) Glucose 87 (70-105) mg/dL Calculated Osmolality 284 (280-300) Uric Acid 6.0 (2.3-7.6) mg/dL Calcium 8.9 (8.6-10.3) mg/dL Total Bilirubin 0.2 L (0.3-1.0) mg/dL AST 28 (13-39) Units/L ALT 33 (7-52) Units/L Alkaline Phosphatase 112 H (34-104) Units/L Lactate Dehydrogenase 260 (140-271) Units/L Serum Total Protein 6.8 (6.4-8.9) g/dL Albumin 3.6 (3.5-5.7) g/dL Globulin 3.2 (2.4-3.5) g/dL Albumin/Globulin Ratio 1.1 (1.1-2.2) Lipase 55 (11-82) Units/L Urine Color Yellow (Yellow) Urine Clarity Cloudy A (Clear) Urine pH 6.5 (5.0-8.0) pH Units Ur Specific [place] 1.016 (1.010-1.025) Urine Protein Trace (Neg-Trace) mg/dL Urine Glucose (UA) Normal (Normal) mg/dL Urine Ketones Negative (Negative) mg/dL Urine Blood Large H (Negative) Urine Nitrite Negative (Negative) Urine Bilirubin Negative (Negative) Urine Urobilinogen Normal (Normal) mg/dL Ur Leukocyte Esterase Large H (Negative) Urine Microscopic RBC 50-100 H (0-3) per hpf Urine Microscopic WBC TNTC H (0-3) per hpf Ur Squamous Epith Cells Few (None-Few) per lpf Urine Bacteria None Seen (None-Few) per hpf Hyaline Casts Moderate H (None-Few) per lpf Ur Culture Indicated? YES A (NO) - Radiology Data Radiology results reviewed: Yes I reviewed the patient's radiology results. Abdomen/Pelvis CT 01/05/18 20:22 IMPRESSION: Bulky, edematous appearing uterus, consistent with the history of recent . Consider pelvic ultrasound for further evaluation. Cholelithiasis without evidence of cholecystitis. D/ / Rodri Granados MD / Rodri Granados MD Interpreting Provider: Rodri Granados MD Pelvis Ultrasound 01/05/18 20:34 IMPRESSION: Enlarged post-gravid uterus with thickened heterogeneous endometrial stripe with some hypervascularity suspicious for endometritis. Difficult to entirely exclude retained products of conception. Normal Doppler flow within the ovaries. D/ / 01/05/2018 22:45:18 Ron Camilo / maury Interpreting Provider: Ron Camilo Attestation Statement - Attestation Attestation: I, Julian Bermeo MD, personally evaluated this patient and discussed their management with the resident physician. I reviewed the resident's note and agree with the documented findings, medical decision making, and plan of care. 27-year-old female who is 4 days from a vaginal delivery presents to the emergency department with a complaint of increased lower abdominal pain today. The pain is mostly on the right side. She also has had chills and subjective fever all day. She states that she has had a normal amount of bleeding. No dysuria. On examination patient is a well-developed well-nourished well-appearing female in no acute distress. She is alert and oriented 3. There is no cyanosis or diaphoresis. Breath sounds are clear and equal bilaterally. Heart regular rate and rhythm with a mild tachycardia. Abdomen is soft with normal bowel sounds. There is moderate suprapubic and right lower quadrant tenderness on direct palpation with mild guarding. No CVA tenderness. Labs reviewed. CT abdomen and pelvis and pelvic ultrasound reviewed. Dr. Lantigua discussed with [facility] and patient was accepted by [facility] for admission.
[2018-01-06] MEDS ORDERED: Acetaminophen 325 MG TABLET PO PRN (02:54)
[2018-01-06] MEDS: Ibuprofen 600 MG TABLET PO PRN ×2 (03:31→15:29)
--- NOTE | 2018-01-06 04:15 | OB/GYN History & Physical ---
Date of Encounter: 01/06/18 Time of Encounter: 02:00 Assessment and Plan (1) Endometritis following delivery Current visit: Yes Status: Acute Admit to PP unit IV zosyn q 8 Ibuprofen PRN Percocet PRN Regular diet Anticipate discharge home in 24-48 hours upon resolution of abdominal tenderness and fever History of Present Illness Chief complaint: abdominal pain and fever HPI: Ms. Bowers is a 27 year old female 002 who is day 5 from a spontaneous vaginal delivery. She reports 2-3 days ago she began having a headache that was relieved with Tylenol and she also experienced back pain relieved with ibuprofen. At 4:00 this afternoon she was finished breast- feeding and suddenly developed cold chills, achy, and flu-like symptoms, she also reports she was feeling abdominal cramps mostly on the right side of her of her belly. She reports that they have settled down. She states she was not going to go to the emergency room but her family insisted. Upon arrival to the emergency room she states that she had a sudden gush of blood followed by more cramping. She states the bleeding has now slowed down considerably. She still reports some mild to moderate pain in her abdomen. Past Med Surg Social Fam HX - Past Medical History Medical history: asthma Psychiatric history: anxiety, depression - Past Surgical History Surgical History: other Additional surgical history: Dental Implants - Social History Smoking Status: Never smoker Smokeless Tobacco Status: No Alcohol use: none Drug use: none - Family History Mother Living Status: Still Living Hx Family Cardiac Disorders: No Hx Family Respiratory Disorders: No Hx Family Cancer: No Hx Family GI Disorders: No Hx Family Endocrine Disorder: Yes (throid) Hx Family Neuromuscular Disorders: No Hx Family Neurologic Disorders: No Hx Family HEENT Disorders: No Hx Family Autoimmune Disorders: No Obstetrical History - Pregnancies : 2 Para: 2 Term: 2 : 0 Ab's: 0 Livin Medications and Allergies Acetaminophen [Tylenol] 650 mg PO Q6HR PRN tablet 01/02/18 [Rx] Benzocaine/Menthol [place] [Dermoplast [place]] 1 appl TP QID PRN aerosol 01/02/18 [Rx] Breast Pump [BREAST PUMP] 1 each .ROUTE AD #1 each 01/02/18 [Rx] Docusate [Colace] 100 mg PO BID PRN #30 capsule 01/02/18 [Rx] Ferrous Sulfate 325 mg PO DAILY #90 tablet 01/02/18 [Rx] Ibuprofen [Motrin] 600 mg PO Q6HR PRN #30 tablet 01/02/18 [Rx] Lanolin [Lansinoh] 1 appl TP QID PRN oint...g. 01/02/18 [Rx] Measles/Mumps/Rubella Vacc [MMR II Vaccine with Diluent] 0.5 ml SQ AD PRN vial 01/02/18 [Rx] Vit/FA 1 each PO DAILY tablet 01/02/18 [Rx] Breast Pump [BREAST PUMP] 1 each .ROUTE AD #1 each 01/03/18 [Rx] 3 Allergy/AdvReac Type Severity Reaction Status Date / Time No Known Allergies Allergy Verified 10/01/17 19:54 Review of System OB All systems PM: reviewed and no additional remarkable complaints except as stated Exam - Vital Signs Vital signs: Initial Vital Signs Temp Pulse Resp BP Pulse Ox 98.4 F 128 20 132/84 97 01/05/18 19:48 01/05/18 19:48 01/05/18 19:48 01/05/18 19:48 01/05/18 19:48 - Constitutional Constitutional: well developed, well nourished, average body habitus, moderate distress - HEENT HEENT: PERRL, Normocephaly, Mucus Membranes Moist - Neck Neck exam: full ROM - Lungs Respiratory exam: CTAB - Cardiovascular Cardiovascular exam: RRR, +S1, +S2 - Abdomen Abdomen: Present: bowel sounds normal, diffuse tenderness, guarding noted - Extremities Extremities exam: normal inspection, radial pulses palpable and symmetrical - Uterus Uterus exam: Present: normal size, normal contour, tender Results Result Diagrams: 01/05/18 21:03 01/05/18 21:03 Abnormal lab results WBC 13.8 K/mcL (4.3-11.1) H 01/05/18 21:03 MCH 26.7 pg (28.0-33.3) L 01/05/18 21:03 RDW 16.2 % (11.5-14.5) H 01/05/18 21:03 Neutrophils # 10.9 K/mcL (1.6-8.9) H 01/05/18 21:03 Total Bilirubin 0.2 mg/dL (0.3-1.0) L 01/05/18 21:03 Alkaline Phosphatase 112 Units/L (34-104) H 01/05/18 21:03 Urine Clarity Cloudy (Clear) A 01/05/18 20:47 Urine Blood Large (Negative) H 01/05/18 20:47 Ur Leukocyte Esterase Large (Negative) H 01/05/18 20:47 Urine Microscopic RBC 50-100 per hpf (0-3) H 01/05/18 20:47 Urine Microscopic WBC TNTC per hpf (0-3) H 01/05/18 20:47 Hyaline Casts Moderate per lpf (None-Few) H 01/05/18 20:47 Ur Culture Indicated? YES (NO) A 01/05/18 20:47 All other labs normal. - VTE Reasons for not Prescribing Prophylaxis: Treatment not Indicated - Low risk for VTE
[2018-01-06 06:11] LABS: Basophils # 0.1 K/mcL (0.0-0.2); Basophils % 0.3 %; Eosinophils # 0.3 K/mcL (0.0-0.6); Eosinophils % 1.5 %; Hemoglobin 11.6 g/dL (11.5-15.4); Immature Granulocytes % 0.4 % (0-4); Lymphocytes # 1.4 K/mcL (0.6-4.6); Lymphocytes % 7.9 %; Mean Corpuscular HGB Conc 31.4 g/dL (31.6-35.5); Mean Corpuscular Hemoglobin 26.4 pg (28.0-33.3); Mean Corpuscular Volume 84.3 fL (83.0-100.0); Mean Platelet Volume 9.7 fL (9.4-12.4); Monocytes # 1.1 K/mcL (0.0-1.3); Monocytes % 6.4 %; Neutrophils # 14.8 K/mcL (1.6-8.9); Platelet Count 336 K/mcL (140-400); Red Blood Count 4.39 M/mcL (3.82-4.97); Red Cell Distribution Width 16.5 % (11.5-14.5); Segmented Neutrophils % 83.5 %
[2018-01-06] MEDS ORDERED: 0.9 % Sodium Chloride 1,000 ML ONE (08:38)
[2018-01-06] MEDS: *HR* OxyCODONE/APAP 5/325 TABLET PO PRN (08:45)
[2018-01-06] MEDS: Piperacillin/Tazobactam 3.375 GM in 0.9 % Sodium Chloride Mini Bag 100 ML IVPB SCH ×3 (08:46→22:55)
[2018-01-07] MEDS: Piperacillin/Tazobactam 3.375 GM in 0.9 % Sodium Chloride Mini Bag 100 ML IVPB SCH ×3 (08:43→23:08)
[2018-01-07] MEDS: *HR* OxyCODONE/APAP 5/325 TABLET PO PRN (11:52)
--- NOTE | 2018-01-07 12:58 | OB/GYN Progress Note ---
Date of Encounter: 01/07/18 Time of Encounter: 12:55 - Assessment and Plan (1) Endometritis following delivery Current Visit: Yes Status: Acute Pt still with significant pain requiring pain meds. No chills, appropriate lochia. Reviewed CT and U/S which showed probable myometritis with 3 cm thickening. No obvious retained placenta. CBC this am was higher than at admission. Siince pt with worsening WBC and still with significant pain will cont. IV ATB's and treatment. Subjective - Subjective Principal diagnosis: myometritis Interval history: Pt no longer with chills. Still with abdominal/uterine tenderness. Was having RLQ pain, now with LLQ pain worse after breast feeding. Appropriate lochia. No other c/o. Objective - Vital Signs Latest vital signs: Vital Signs Temp Pulse Resp BP Pulse Ox 01/07/18 08:42 98.7 F 90 16 127/79 98 01/07/18 04:15 99.1 F 83 16 112/68 98 01/06/18 23:05 98.5 F 109 18 120/73 98 01/06/18 19:29 99.4 F 103 18 127/45 97 01/06/18 14:44 98.5 F 106 16 116/73 98 Intake and Output 01/06/18 01/07/18 01/07/18 23:59 07:59 15:59 Intake Total 1000 / 1000 100 / 100 650 / 650 Output Total 800 / 800 700 / 700 900 / 900 Balance 200 / 200 -600 / -600 -250 / -250 Intake: IV Fluids 100 / 100 100 / 100 Zosyn 3.375 GM In 0.9 % Sodium 100 / 100 100 / 100 Chloride (Mini-Bag +) 100 ML @ 25 mls/hr IVPB Q8HR [facility] Rx#: [id number] Oral 900 / 900 650 / 650 Output: Urine 800 / 800 700 / 700 900 / 900 Other: Meal Dinner Breakfast Percent of Meal Consumed 100% 75% # Voids 2 - I&O's I&O's: Intake & Output 01/04/18 01/05/18 01/06/18 01/07/18 23:59 23:59 23:59 23:59 Intake Total 1460 / 1460 750 / 750 Output Total 800 / 900 1600 / 1600 Balance 660 / 560 -850 / -850 - Exam Lungs: bilateral: normal Chest: Normal S1, Normal S2 Extremities: Present: normal Abdomen: Present: other (Uterus is tender to palpation.) - Labs Labs: Abnormal lab results WBC 17.8 K/mcL (4.3-11.1) H 01/06/18 05:51 MCH 26.4 pg (28.0-33.3) L 01/06/18 05:51 MCHC 31.4 g/dL (31.6-35.5) L 01/06/18 05:51 RDW 16.5 % (11.5-14.5) H 01/06/18 05:51 Neutrophils # 14.8 K/mcL (1.6-8.9) H 01/06/18 05:51 Total Bilirubin 0.2 mg/dL (0.3-1.0) L 01/05/18 21:03 Alkaline Phosphatase 112 Units/L (34-104) H 01/05/18 21:03 Urine Clarity Cloudy (Clear) A 01/05/18 20:47 Urine Blood Large (Negative) H 01/05/18 20:47 Ur Leukocyte Esterase Large (Negative) H 01/05/18 20:47 Urine Microscopic RBC 50-100 per hpf (0-3) H 01/05/18 20:47 Urine Microscopic WBC TNTC per hpf (0-3) H 01/05/18 20:47 Hyaline Casts Moderate per lpf (None-Few) H 01/05/18 20:47 Ur Culture Indicated? YES (NO) A 01/05/18 20:47 Consult Discharge Plan - Plan Referrals: NONE,PCP [Primary Care Provider] -
[2018-01-07] MEDS: Ibuprofen 600 MG TABLET PO PRN (16:35)
[2018-01-08] MEDS: Ibuprofen 600 MG TABLET PO PRN (02:31)
[2018-01-08] MEDS: Piperacillin/Tazobactam 3.375 GM in 0.9 % Sodium Chloride Mini Bag 100 ML IVPB SCH (07:53)
[2018-01-08 08:06] LABS: Basophils # 0.1 K/mcL (0.0-0.2); Basophils % 0.7 %; Eosinophils # 0.4 K/mcL (0.0-0.6); Eosinophils % 4.1 %; Hematocrit 35.7 % (35.3-44.9); Hemoglobin 11.5 g/dL (11.5-15.4); Immature Granulocytes % 0.7 % (0-4); Lymphocytes # 1.8 K/mcL (0.6-4.6); Lymphocytes % 19.3 %; Mean Corpuscular HGB Conc 32.2 g/dL (31.6-35.5); Mean Corpuscular Hemoglobin 26.9 pg (28.0-33.3); Mean Corpuscular Volume 83.4 fL (83.0-100.0); Mean Platelet Volume 9.7 fL (9.4-12.4); Monocytes # 0.7 K/mcL (0.0-1.3); Monocytes % 7.5 %; Neutrophils # 6.1 K/mcL (1.6-8.9); Platelet Count 324 K/mcL (140-400); Red Blood Count 4.28 M/mcL (3.82-4.97); Red Cell Distribution Width 16.5 % (11.5-14.5); Segmented Neutrophils % 67.7 %
--- NOTE | 2018-01-08 08:31 | Discharge Summary ---
Date of Encounter: 01/08/18 Time of Encounter: 08:30 - Discharge Diagnosis (1) Status post vaginal delivery Priority: Secondary Status: Acute (2) Endometritis following delivery Priority: Primary Status: Acute Comments: We will discharge patient home on clindamycin 300 mg 3 times a day for 10 days (3) Urinary tract infection Priority: Primary Status: Acute Comments: We will discharge patient home on Keflex 500 mg twice a day for 10 days Qualifiers: Urinary tract infection type: acute cystitis Hematuria presence: without hematuria Qualified Code(s): N30.00 - Acute cystitis without hematuria - Discharge Medications Home Medications: Acetaminophen [Tylenol] 650 mg PO Q6HR PRN tablet 01/02/18 [Rx] Benzocaine/Menthol Barton [Dermoplast Barton] 1 appl TP QID PRN aerosol 01/02/18 [Rx] Breast Pump [BREAST PUMP] 1 each .ROUTE AD #1 each 01/02/18 [Rx] Docusate [Colace] 100 mg PO BID PRN #30 capsule 01/02/18 [Rx] Ferrous Sulfate 325 mg PO DAILY #90 tablet 01/02/18 [Rx] Ibuprofen [Motrin] 600 mg PO Q6HR PRN #30 tablet 01/02/18 [Rx] Lanolin [Lansinoh] 1 appl TP QID PRN oint...g. 01/02/18 [Rx] Measles/Mumps/Rubella Vacc [MMR II Vaccine with Diluent] 0.5 ml SQ AD PRN vial 01/02/18 [Rx] Vit/FA 1 each PO DAILY tablet 01/02/18 [Rx] Breast Pump [BREAST PUMP] 1 each .ROUTE AD #1 each 01/03/18 [Rx] Allergies/Adverse Reactions: 3 Allergy/AdvReac Type Severity Reaction Status Date / Time No Known Allergies Allergy Verified 10/01/17 19:54 Data Procedures and tests throughout hospitalization: Laboratory Tests 01/06/18 01/08/18 05:51 07:12 WBC 17.8 H 9.1 RBC 4.39 4.28 Hgb 11.6 11.5 Hct 37.0 35.7 MCV 84.3 83.4 MCH 26.4 L 26.9 L MCHC 31.4 L 32.2 RDW 16.5 H 16.5 H Plt Count 336 324 MPV 9.7 9.7 Immature Gran % 0.4 0.7 Seg Neutrophils % 83.5 67.7 Lymphocytes % 7.9 19.3 Monocytes % 6.4 7.5 Eosinophils % 1.5 4.1 Basophils % 0.3 0.7 Neutrophils # 14.8 H 6.1 Lymphocytes # 1.4 1.8 Monocytes # 1.1 0.7 Eosinophils # 0.3 0.4 Basophils # 0.1 0.1 Labs on day of discharge: Labs from last 24 hours 01/08/18 07:12 WBC 9.1 RBC 4.28 Hgb 11.5 Hct 35.7 MCV 83.4 MCH 26.9 L MCHC 32.2 RDW 16.5 H Plt Count 324 MPV 9.7 Immature Gran % 0.7 Seg Neutrophils % 67.7 Lymphocytes % 19.3 Monocytes % 7.5 Eosinophils % 4.1 Basophils % 0.7 Neutrophils # 6.1 Lymphocytes # 1.8 Monocytes # 0.7 Eosinophils # 0.4 Basophils # 0.1 Date of admission: 01/06/18 02:54 Primary care physician: PCP NONE Discharging clinician: Humberto Mercado Anticipated date of discharge: 01/08/18 - Patient Status Disposition: Home, Self-Care Condition: Good Functional capacity at discharge: independent ambulation Overall status at discharge: patient is progressing back to baseline - Discharge Instructions Follow Up With: NONE,PCP [Primary Care Provider] - Eliana Quinones DO [Partnered Physician] - - Diet and Activity Activity: increase activity as tolerated Diet: advance to your usual diet 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: other (Status post vaginal delivery, abdominal pain, fever and chills) Discharge diagnosis: other (Same with endomyometritis, urinary tract infection) Hospital course: Patient is a 27-year-old 2 para 2 status post vaginal delivery approximately 1 week ago who presented back to the emergency room complaining of fevers chills and abdominal pain patient states that she was not feeling well have headaches was taken Tylenol and then started having chills and fevers patient was assessed was noted to have tenderness to the abdomen suggestive possible endomyometritis she was admitted for IV antibiotics. Patient's white count did elevate but has returned back to normal since antibiotics have been started patient's urine did come back positive for gram-negative rods suggestive of Escherichia coli patient's white count is back to normal range patient is wanting to go home she will be discharged home on clindamycin 300 mg 3 times a day for 10 days and Keflex 500 mg twice a day for 10 days she will follow up in the office within the next 7-10 days Time Attestation: Total time spent providing and/or coordinating discharge services: Exam - Constitutional Vitals: Temp Pulse Resp BP Pulse Ox 99.5 F 97 18 115/77 98 01/08/18 03:30 01/08/18 03:30 01/08/18 03:30 01/08/18 03:30 01/08/18 03:30 General appearance IM: A&O X 3 - Respiratory Respiratory exam: Present: CTAB - Cardiovascular Cardiovascular exam IM: Present: RRR - GI/Abdominal GI/Abdominal exam IM: firm (uterus nontender to palpation), normal bowel sounds - Rectal Rectal exam: deferred - Uterus Position: At Umbilicus (nontender) - VTE Reasons for not Prescribing Prophylaxis: Treatment not Indicated - Low risk for VTE
[2018-01-08 09:44] VITALS: BP 116/75
== END 2018-01-08 13:00 | disposition home or self-care (01) | DRG 561 ==
LOC: EMEROOARM 19:38 → 1NENUPED 19:38
PROVIDERS: ADMIT Student in an Organized Health Care Education/Training Program; ATTEND Student in an Organized Health Care Education/Training Program